=== PATIENT | female | born 1985 | race Caucasian/White ===

== ENCOUNTER 2019-05-20 20:15 | Inpatient (IN) | payer MEDICAID, OTHER ==
[~2019-05-20] VITALS: Ht 160 cm; Wt 43.8 kg
[2019-05-20] MEDS ORDERED: magnesium hydroxide 30ml (MOM) UD suspension PO PRN (21:55)
[2019-05-20] MEDS ORDERED: acetaminophen 325mg tablet PO PRN (21:55)
[2019-05-20] MEDS ORDERED: loperamide 2mg capsule PO PRN (21:55)
[2019-05-20] MEDS ORDERED: mag hydrox/Alum hydrox/simeth 30ml oral suspension PO PRN (21:55)
[2019-05-20 22:30] VITALS: BP 93/53
--- NOTE | 2019-05-20 23:30 | NUR ---
I have assumed care of this patient and agree with all notes and interventions made by Santa Hamilton RN and Maida Clarke RN. Patient is lying in bed with eyes closed. No s/s of distress. Breathing even and unlabored.
--- NOTE | 2019-05-20 23:30 | NUR ---
Nursing Note: Admission Skin Check complete by Fernanda Miles RN and Joy Medina RN. Pt. has and abrasion on the left side of her nose, bruises present on inside of bilateral upper arms, and scabbed areas present on upper left lower extremity. Skin CDI, and pictures of areas obtained and placed in chart.
[2019-05-21] MEDS ORDERED: NO HOME MEDS (00:19)
--- NOTE | 2019-05-21 05:20 | NUR ---
ROUTER MACHINE OPERATOR NOTE: LEGAL HOLD: 5150 for GD, Psychosis NOS, Hx Schizophrenia THIS SHIFT: BIB [employer] for bizarre, disorganized behaviors. Reported that client had been running around w/o pants. Client became assaultive toward officers and staff requiring 4 point and chemical restraints in ED. Med Hx shows client has Hx of schizophrenia and methamphetamine use. Client had ALOC. Was unable to state date, time, or place. Client is confused. Arrived on the unit at 22:30 via wheelchair, escorted to unit by Darnell Moeller. Client stated she was "tired". Client took shower. Skin assessment performed by Maida Aranda RN and this RN. Belongings were inventoried. Clients has flat affect and depressed mood. She was cooperative with the admission process. Aries Manzanares RN assumed care of client.
[2019-05-21 08:00] VITALS: BP 92/42
[2019-05-21] MEDS ORDERED: tuberculin, purif. prot. deriv. 5 units/0.1ml ID ONE (10:00)
--- NOTE | 2019-05-21 12:51 | NUR ---
Noted that pt with an underweight BMI of 17.6. Pt currently on a regular diet with documented 25/75/50% PO intake first meal. Pt documented as A/O x1, confused, and very fatigued. Current mentation/state of confusion could be contributing to poor PO intake. No recent wt hx. Pt with no documented edema or decrease in muscle strength. Pt currently lacks a minimum of two qualifying criteria for malnutrition. Will continue to follow and make recommendations as appropriate. Addendum: 05/21/19 at [address] Amended: Links added.
--- NOTE | 2019-05-21 18:05 | NUR ---
Nursing Progress Note Legal hold: 5150 for GD, Psychosis NOS, Hx Schizophrenia Report received from nurse with use of SBAR: Nella RN Why are they here: BIB [employer] for bizarre, disorganized behaviors. Reported that client had been running around w/o pants. Client became assaultive toward officers and staff requiring 4 point and chemical restraints in ED. Client has Hx of schizophrenia and methamphetamine use. Was unable to state date, time, or place. Client is confused. Assessment What has happened this shift: Received pt in bed sleeping w/o distress at change of shift. Pt groggy and responded only with one word answers when attempts made to wake her. She finally awoke and attended breakfast and returned to bed. Dr Simons attempted to interview client but got only short answers and confused responses. Client returned to bed and rested intermittently throughout morning. Conversations attempted with this RN were brief and pt unable to remember events leading up to hospitalization. Denies using Meth, stating I dont do that. Became animated in mid afternoon and attended PM group and took a shower. Continues to ask how long she will be here. Is comfortable with waiting to talk with Dr Simons tomorrow. PPD placed @ 2894. In day room watching TV with others and smiling before dinner. S/I, H/I: Denies A/VH: Denies Sleep: Took naps ADL's: Independent Group attendance: Yes Were meds taken: None ordered Any med S/E: NA Mental Status Exam Appearance: Clean, wearing green scrubs Eye contact: Direct Behavior: Cooperative Speech: Clear, Normal rate and rhythm Mood: Guarded Affect: Flat Thought process: Confused Thought Content: Focused on when she will leave Cognition: Poor Insight: Poor Judgment: Poor Interventions PRN's used: None Therapeutic interventions: 1:1 therapeutic assessment, maintained safe therapeutic milieu, provided active listening with positive feedback provided medication education, prn administration for potential DTO, as self-reported. Monitor for change in behavior and needed interventions. Restraints/seclusion/emergency medication: N/A Justification of Continued Inpatient Treatment: Continued therapeutic support and medication management needed to provide stabilization, prevent decompensation, coping mechanisms decreasing risk to patient and re-admittance.
[2019-05-21 19:40] VITALS: BP 95/56
[2019-05-21] MEDS: LORazepam 1 MG tablet PO PRN (20:22)
[2019-05-21] MEDS: quetiapine 100mg tablet PO SCH ×2 (20:58→21:00)
--- NOTE | 2019-05-21 22:25 | NUR ---
Nursing Progress Note Legal hold: 5150 for GD, Psychosis NOS, Hx Schizophrenia Report received from nurse with use of SBAR: Verito RN Why are they here: BIB [employer] for bizarre, disorganized behaviors. Reported that client had been running around w/o pants. Client became assaultive toward officers and staff requiring 4 point and chemical restraints in ED. Client has Hx of schizophrenia and methamphetamine use. Was unable to state date, time, or place. Client is confused. Assessment What has happened this shift: Pt was in her room at change of shift. 1:1 assessment completed at bedside. pt is unable to state why she is here, doesnt know what town she is in or where she is from. Pt hesitates when asked her name and then says, "they have my name down as my mom, my last name is pete" Pts appetite is good, she states she is seeing "faces" and points to her thumbs and states "these are falling off." Pt became very anxious and was given ativan prn, w poor effect. Pt then given seroquel for sleep w/good affect. S/I, H/I: Denies A/VH: Denies Sleep: reports not being able to sleep ADL's: Independent Group attendance: Yes Were meds taken: None ordered Any med S/E: NA Mental Status Exam Appearance: Clean, wearing green scrubs Eye contact: Direct Behavior: Cooperative Speech: Clear, Normal rate and rhythm Mood: Guarded, fearful Affect: Flat Thought process: disorganized Thought Content: fearful, asking to take a shower, asking for gummy fruit snacks Cognition: impaired Insight: Poor Judgment: Poor Interventions PRN's used: None Therapeutic interventions: 1:1 therapeutic assessment, maintained safe therapeutic milieu, provided active listening with positive feedback provided medication education, prn administration for potential DTO, as self-reported. Monitor for change in behavior and needed interventions. Restraints/seclusion/emergency medication: N/A Justification of Continued Inpatient Treatment: Continued therapeutic support and medication management needed to provide stabilization, prevent decompensation, coping mechanisms decreasing risk to patient and re-admittance.
[2019-05-22 07:33] VITALS: BP 100/66
[2019-05-22 08:54] LABS: CHOL/HDL RATIO 2.3 (0.00-4.99); CHOLESTEROL 135 MG/DL (0-200); HDL CHOLESTEROL 58 MG/DL (35-60); LDL CHOLESTEROL 72 MG/DL (50-100); TRIGLYCERIDES 29 MG/DL (20-135)
[2019-05-22 08:58] LABS: HEMOGLOBIN A1C 5.2 % (4.5-6.2)
[2019-05-22] MEDS: LORazepam 1 MG tablet PO PRN (15:51)
--- NOTE | 2019-05-22 16:54 | NUR ---
Nursing Progress Note Legal hold: 5150 for GD, Psychosis NOS, Hx Schizophrenia Report received from nurse with use of SBAR: Aisha RN Why are they here: BIB [employer] for bizarre, disorganized behaviors. Reported that client had been running around w/o pants. Client became assaultive toward officers and staff requiring 4 point and chemical restraints in ED. Client has Hx of schizophrenia and methamphetamine use. Was unable to state date, time, or place. Client is confused. Assessment What has happened this shift: Asleep upon change of shift observation. Awakened for vital signs and breakfast. Patient returned to bed immediately afterwards. Stayed in bed throughout the morning stating "I need to sleep." Up for lunch. Ate her meal quietly in the community room without interacting with others. Went back to her room once again to take a nap. Woke up in a terror. Stated she had a nightmare that a bag had been placed over her head and she had been kidnapped by "bad people and I was afraid for my life." Comforted by staff. Conversation ensued afterwards. Patient has no idea what brought her to the hospital. She denies suicidal ideation or intent. She denies her identity as Marely. She states she is a 28 year old woman named Jane, that her mother "was a weakling and killed herself. I raised myself in hotels since I was [age] years old. No one was there to help me. I learned how to survive on my own." Patient also stated she was a diabetic "since childhood and I need to keep food in my room." Patient had an orange and a yogurt on her table tray and was alarmed it had been removed. Blood sugar taken. Value = 84. Given an orange to ease her concerns. S/I, H/I: Denies A/VH: Denies Sleep: Took naps ADL's: Independent Group attendance: Yes Were meds taken: None ordered Any med S/E: NA Mental Status Exam Appearance: Clean, wearing green scrubs Eye contact: Direct Behavior: Cooperative Speech: Clear, Normal rate and rhythm Mood: Guarded Affect: Flat Thought process: Confused Thought Content: Focused on when she will leave Cognition: Poor Insight: Poor Judgment: Poor Interventions PRN's used: Ativan 1 mg PO PRN Therapeutic interventions: 1:1 therapeutic assessment, maintained safe therapeutic milieu, provided active listening with positive feedback provided medication education, prn administration for potential DTO, as self-reported. Monitor for change in behavior and needed interventions. Restraints/seclusion/emergency medication: N/A Justification of Continued Inpatient Treatment: Continued therapeutic support and medication management needed to provide stabilization, prevent decompensation, coping mechanisms decreasing risk to patient and re-admittance.
[2019-05-22] MEDS: hydrOXYzine 25 MG tablet PO PRN (19:32)
[2019-05-22 20:00] VITALS: BP 107/70
[2019-05-22] MEDS: quetiapine 100mg tablet PO SCH (20:30)
--- NOTE | 2019-05-22 22:43 | NUR ---
Nursing Progress Note Legal hold: 5150 for GD, Psychosis NOS, Hx Schizophrenia Report received from nurse with use of SBAR: Verito RN Why are they here: BIB [facility] for bizarre, disorganized behaviors. Reported that client had been running around w/o pants. Client became assaultive toward officers and staff requiring 4 point and chemical restraints in ED. Client has Hx of schizophrenia and methamphetamine use. Was unable to state date, time, or place. Client is confused. Assessment What has happened this shift: Pt was sleeping at change of shift. 1:1 assessment completed at bedside. pt came out of her room c/o anxiety and requesting medication shortly after change of shift. Pt was given atarax w/good effect. pt c/o not getting enough food at dinner and requests a snack and was provided w/a snack. Pt state "they want to keep us all skinny and barely alive" then smiles as if joking. pt is requesting another room stating she has migraines and can only sleep in dark rooms. Pt requests to move into a room w/male patients and states "we would all be really healthy if they would let us sleep together." Pt makes bizarre statements, continues to be confused about where she is. She is able to states shes in [place] but can't recall the reason she is here, or where she is from. S/I, H/I: Denies A/VH: Denies Sleep: pt reports sleeping good ADL's: Independent Group attendance: Yes Were meds taken: None ordered Any med S/E: NA Mental Status Exam Appearance: Clean, wearing green scrubs Eye contact: Direct Behavior: Cooperative Speech: Clear, Normal rate and rhythm Mood: Guarded, anxious Affect: Flat Thought process: Confused Thought Content: asking for another room Cognition: Poor Insight: Poor Judgment: Poor Interventions PRN's used: Ativan, atarax Therapeutic interventions: 1:1 therapeutic assessment, maintained safe therapeutic milieu, provided active listening with positive feedback provided medication education, prn administration for potential DTO, as self-reported. Monitor for change in behavior and needed interventions. Restraints/seclusion/emergency medication: N/A Justification of Continued Inpatient Treatment: Continued therapeutic support and medication management needed to provide stabilization, prevent decompensation, coping mechanisms decreasing risk to patient and re-admittance.
[2019-05-23 07:22] VITALS: BP 91/57
[2019-05-23 08:25] VITALS: BP 105/48
[2019-05-23] MEDS: acetaminophen 325mg tablet PO PRN ×2 (08:29→22:33)
[2019-05-23] MEDS: hydrOXYzine 25 MG tablet PO PRN ×3 (08:30→22:30)
[2019-05-23] MEDS: LORazepam 1 MG tablet PO PRN ×2 (11:17→21:39)
--- NOTE | 2019-05-23 16:44 | NUR ---
Nursing Progress Note Legal hold: 5150 for GD Report received from nurse with use of SBAR: ZACK Aldana Why are they here: BIB [facility] for bizarre, disorganized behaviors. Reported that client had been running around w/o pants. Client became assaultive toward officers and staff requiring 4 point and chemical restraints in ED. Client has Hx of schizophrenia and methamphetamine use. Was unable to state date, time, or place. Client is confused. Assessment What has happened this shift: The pt was sleeping at change of shift. She was cooperative with assessment. Pt's appearance disheveled with her hair standing straight out. During assessment, pt reported anxiety /10, Atarax given. She denied depression, SI, and A/VH. Pt's affect was constricted. She appeared to be experiencing delusions as she stated that her name was not Marely, but Lety Cope and her birthday is 07/07/1996. Pt appears younger than stated age. Pt reports that she has no friends or family available to contact. PRN Tylenol relieved pt's headache. Later in the morning the pt experienced increasing anxiety and was given Ativan. She napped for much of the morning. The pt was focused on the idea of getting a job. She also said she wants to volunteer at the [facility]. In the afternoon, pt was given Atarax for anxiety. S/I, H/I: Denies A/VH: Denies Sleep: Napped ADL's: Independent Group attendance: No Were meds taken: Yes Any med S/E: None reported or noted Mental Status Exam Appearance: Wearing green scrubs, hair standing out from head Eye contact: Direct Behavior: Cooperative Speech: Clear, Normal rate and rhythm Mood: Anxious Affect: Constricted Thought process: Delusions Thought Content: Focused on wanting to find a job Cognition: Confused, unable to state year, thinks she has a different name, but knows she is at a medical center and states she is here because she cannot provide food, clothing, and care home for herself Insight: Poor Judgment: Poor Interventions PRN's used: Ativan, Atarax 2xs, Tylenol Therapeutic interventions: 1:1 therapeutic assessment, maintained safe therapeutic milieu, provided active listening with positive feedback, provided medication education, administration and monitoring for side effects, monitor for change in behavior and needed interventions, maintain q15min safety checks, maintain therapeutic milieu. Restraints/seclusion/emergency medication: N/A Justification of Continued Inpatient Treatment: Continued therapeutic support and medication management needed to provide stabilization, prevent decompensation, coping mechanisms decreasing risk to patient and re-admittance.
[2019-05-23 20:00] VITALS: BP 109/69
[2019-05-23] MEDS: QUEtiapine 25mg tablet PO SCH (20:21)
--- NOTE | 2019-05-23 21:03 | NUR ---
Nursing Progress Note Legal hold: 5150 for GD Report received from nurse with use of SBAR: Lucretia RN Why are they here: BIB [employer] for bizarre, disorganized behaviors. Reported that client had been running around w/o pants. Client became assaultive toward officers and staff requiring 4 point and chemical restraints in ED. Client has Hx of schizophrenia and methamphetamine use. Was unable to state date, time, or place. Client is confused. Assessment What has happened this shift: Pt was in hallway at change of shift, pacing wearing headphones, Pt is pleasant, cooperative, 1:1 assessment completed at bedside. Pt continues to state her name is tacho, I asked her who frida was and she states "Oh thats my jose, shes my grandma, my real mom is tacho and she last year of a drug overdose, I [place] the river to talk to her when I miss her, I can feel her when I sit by the river." pt states she was born in [place] and but has lived in [place] all her life. Pt continues to give a different name and date. Pt states another pt offered to let her live w/him and be his bacteriologist medical. Although the other patient doesnt have a house. Pt states she is here to "get my thinking process in order, I feel its easier to breath and easier to communicate, when I have a more consistent thinking process." pt states she feels like her medicine is working for her. Pt reports sleeping good last night. Pt reports she is eating so much she feels like a "pregant horse". Pt reports having a good day, took shower, got ready and reina pics. S/I, H/I: Denies A/VH: Denies Sleep: Napped ADL's: Independent Group attendance: No Were meds taken: Yes Any med S/E: None reported or noted Mental Status Exam Appearance: Wearing green scrubs, hair standing out from head Eye contact: Direct Behavior: Cooperative Speech: Clear, Normal rate and rhythm Mood: Anxious Affect: Constricted Thought process: Delusions Thought Content: Focused on getting more atarax, suggested patient try to rest w/seroquel and if she wakes up anxious to let me know. Pt wasn't somewhat agitated but went to sleep. Cognition: Confused, unable to state year, thinks she has a different name, but knows she is at a medical center and states she is here because she cannot provide food, clothing, and group home for herself Insight: Poor Judgment: Poor Interventions PRN's used: Therapeutic interventions: 1:1 therapeutic assessment, maintained safe therapeutic milieu, provided active listening with positive feedback, provided medication education, administration and monitoring for side effects, monitor for change in behavior and needed interventions, maintain q15min safety checks, maintain therapeutic milieu. Restraints/seclusion/emergency medication: N/A Justification of Continued Inpatient Treatment: Continued therapeutic support and medication management needed to provide stabilization, prevent decompensation, coping mechanisms decreasing risk to patient and re-admittance.
[2019-05-23] MEDS ORDERED: benztropine 1mg tablet PO ONE (21:30)
[2019-05-24 08:00] VITALS: BP 95/52
[2019-05-24] MEDS: hydrOXYzine 25 MG tablet PO PRN ×2 (11:13→19:37)
[2019-05-24] MEDS: acetaminophen 325mg tablet PO PRN ×2 (11:13→19:36)
--- NOTE | 2019-05-24 17:27 | NUR ---
Nursing Progress Note Legal hold: 5150 for GD Report received from nurse with use of SBAR: JAMIE Aldana Why are they here: BIB [employer] for bizarre, disorganized behaviors. Reported that client had been running around w/o pants. Client became assaultive toward officers and staff requiring 4 point and chemical restraints in ED. Client has Hx of schizophrenia and methamphetamine use. Was unable to state date, time, or place. Client is confused. Assessment What has happened this shift: Patient is observed sleeping at change of shift. She states that she does not want to get up for breakfast but then does decide to get up and eat. She reports sleeping ok last night. She c/o pain in her neck and her back, rates it 7/10. She reports she is anxious.Conversation is difficult as thought blocking is present and patient appears to be responding to internal stimuli. Patient socializes with other patients in the group room. Topics of discussion are bizarre. She states that the world should not lock up free people, that free people should be out among the world. She states that dogs with hats jump and thats funny. S/I, H/I: Denies A/VH: Denies, appears to be responding to internal stimuli Sleep: 6hrs NOC ADL's: Independent, showered today Group attendance: No Were meds taken: yes Any med S/E: None reported or noted Mental Status Exam Appearance: Wearing green scrubs, hair standing out from head Eye contact: Direct Behavior: Cooperative Speech: pauses often Mood: reports good mood Affect: Constricted Thought process: thought blocking present Thought Content: bizarre Cognition: Confused Insight: Poor Judgment: Poor Interventions PRN's used: Tylenol for pain, Atarax for anxiety Therapeutic interventions: 1:1 therapeutic assessment, maintained safe therapeutic milieu, provided active listening with positive feedback, provided medication education, administration and monitoring for side effects, monitor for change in behavior and needed interventions, maintain q15min safety checks, maintain therapeutic milieu. Restraints/seclusion/emergency medication: N/A Justification of Continued Inpatient Treatment: Continued therapeutic support and medication management needed to provide stabilization, prevent decompensation, coping mechanisms decreasing risk to patient and re-admittance.
[2019-05-24 19:43] VITALS: BP 101/58
[2019-05-24] MEDS: QUEtiapine 25mg tablet PO SCH (20:32)
--- NOTE | 2019-05-24 21:50 | NUR ---
Nursing Note: Pt. c/o restless legs contributing to insomnia, obtained new order for Cogentin 1mg, will continue to monitor.
[2019-05-24] MEDS ORDERED: benztropine 1mg tablet PO SCH (21:55)
--- NOTE | 2019-05-25 02:35 | NUR ---
Nursing Progress Note Legal hold: 5150 for GD Report received from nurse with use of SBAR: ZACK Chong Why are they here: BIB [employer] for bizarre, disorganized behaviors. Reported that client had been running around w/o pants. Client became assaultive toward officers and staff requiring 4 point and chemical restraints in ED. Client has Hx of schizophrenia and methamphetamine use. Was unable to state date, time, or place. Client is confused. Assessment What has happened this shift: Patient sitting in group room at the beginning of shift where she also attended snack. Patient continues to state that the name and on her wristband is her mother. Patient also disoriented to date but oriented to place and partially states why she is here. Socializes with peers and staff when conversation is initiated toward her. Denies SI, HI, and depression but patient talks under her breath as if she is talking with someone next to her. C/O 5/10 back pain, states her pain is associated with her weight gain. PRN Tylenol provided and pt stated its effectiveness. Patient took scheduled medication but continued to c/o of restlessness, N/O for Cogentin provided. Went to sleep shortly after receiving Cogentin. S/I, H/I: Denies A/VH: Denies, appears to be responding to internal stimuli Sleep: Asleep at this time ADL's: Independent, showered today Group attendance: Group room for snack Were meds taken: yes Any med S/E: None reported or noted Mental Status Exam Appearance: Wearing green scrubs, unkept hair Eye contact: Direct Behavior: Cooperative Speech: pauses often Mood: reports good mood Affect: Constricted Thought process: thought blocking present Thought Content: unable to assess Cognition: Confused Insight: Poor Judgment: Poor Interventions PRN's used: Tylenol, Atarax Therapeutic interventions: 1:1 therapeutic assessment, maintained safe therapeutic milieu, provided active listening with positive feedback, provided medication education, administration and monitoring for side effects, monitor for change in behavior and needed interventions, maintain q15min safety checks, maintain therapeutic milieu. Restraints/seclusion/emergency medication: N/A Justification of Continued Inpatient Treatment: Continued therapeutic support and medication management needed to provide stabilization, prevent decompensation, coping mechanisms decreasing risk to patient and re-admittance.
[2019-05-25 07:35] VITALS: BP 100/54
--- NOTE | 2019-05-25 11:58 | NUR ---
Initial: Pt admit to [facility] with psychosis. Pt currently on a regular diet with documented 75-100% PO intake meeting nutrient needs. LBM 05/22. Pt with MoM PRN not yet given, d/w dietary to send power pudding with lunch. No edema or wounds. No nutrition diagnosis at this time. Will continue to follow. Recommendations: 1) Continue with regular diet 2) Bowel care PRN 3) Weekly wt Addendum: 05/25/19 at [address] Amended: Links added.
[2019-05-25] MEDS: acetaminophen 325mg tablet PO PRN (13:20)
[2019-05-25] MEDS ORDERED: QUET100T33 PO (15:57)
[2019-05-25] MEDS ORDERED: BENZ1TAB7 PO (15:57)
--- NOTE | 2019-05-25 16:49 | NUR ---
DISCHARGE NOTE The patient was discharged today at 1645. She was released from her [address] today. She stated she was going to the [facility]. She was escorted to lobby with all instructions and belongings. Her medications were called in to [facility] on [address]. She was given a bus pass for transportation and offered a ride to the [facility]. She was able to state how she would acquire food, clothing and fdc. She denies any thoughts of self harm.
== END 2019-05-25 20:05 | disposition short-term general hospital (02) | DRG 885 ==
LOC: ADULT MH 20:15
PROVIDERS: ADMIT Psychiatry & Neurology Psychiatry; ATTEND Psychiatry & Neurology Psychiatry
DX: F39 Unspecified mood [affective] disorder (principal); F15.20 Other stimulant dependence, uncomplicated; F41.9 Anxiety disorder, unspecified; F29 Unspecified psychosis not due to a substance or known physiological condition; Z78.1 Physical restraint status
CPT/HCPCS: 36415; 80061; 82948; 83036; 87081; Q0177

== ENCOUNTER 2025-10-12 21:22 | Emergency (ER) | payer MEDICAID ==
[~2025-10-12 21:22] MED LIST: BENZ1TAB78 PO; QUET100T34 PO
--- NOTE | 2025-10-12 21:48 | ELECTROCARDIOGRAPH REPORT ---
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 Jaswant German Measurements Intervals [place] Rate: 88 P: 64 NC: 147 QRS: 72 QRSD: 106 T: 71 QT: 368 QTc: 446 Interpretive Statements Sinus rhythm Nonspecific T abnormalities, lateral leads Baseline wander in lead(s) II,III,aVR,aVF Electronically Signed On 10-13-2025 0:24:[address] Jaswant German Please click the below link to view image of tracing.
--- NOTE | 2025-10-12 22:19 | RADIOLOGY REPORT ---
CHEST RADIOGRAPH Indication: CP Technique: Single frontal view of the chest was obtained COMPARISON: None FINDINGS: Lungs and pleural spaces are clear. Cardiac silhouette and gabe are within normal limits. Bones and soft tissues demonstrate no significant abnormality. IMPRESSION: No acute disease.
[2025-10-12 22:21] LABS: MEAN PLATELET VOLUME 7.4 FL (7.4-10.4); RED CELL DISTRIBUTION WIDTH 12.9 % (11.5-14.5)
[2025-10-12 22:38] LABS: CREATININE 0.79 MG/DL (0.40-0.90); TOTAL CARBON DIOXIDE 25.2 MMOL/L (24-32); eGFR 80 ML/MIN
[2025-10-12 22:45] LABS: PRO BRAIN NATRIURETIC PEPTIDE < 30 PG/ML (0-125)
[2025-10-13 00:12] VITALS: BP 114/90; PULSE 72; RESP 18; TEMP 97.6; O2SAT 100
== END 2025-10-13 00:53 | disposition left against medical advice (07) ==
LOC: ER 21:24
DX: R07.89 Other chest pain (principal); R11.10 Vomiting, unspecified; R06.02 Shortness of breath
CPT/HCPCS: 36415; 71045; 80053; 83880; 84484; 85025; 93005; 99281